=== PATIENT | female | born 1945 | race Caucasian/White ===

== ENCOUNTER → 2019-04-19 20:00 | Outpatient (CLI) | payer MEDICARE, SELFPAY ==
[2019-03-28 10:43] VITALS: BMI 29.0
== END ==
PROVIDERS: Family Provider Family Medicine; PCP Family Medicine; Referring Provider Internal Medicine Critical Care Medicine; Visit Provider Internal Medicine Critical Care Medicine
DX: G47.33 Obstructive sleep apnea (adult) (pediatric) (principal)
CPT/HCPCS: 95811

== ENCOUNTER → 2019-05-19 12:42 | Outpatient (CLI) | payer MEDICARE, SELFPAY ==
[2019-03-28 10:43] VITALS: BMI 29.0
--- NOTE | 2019-05-20 14:04 | PFT ---
INTRODUCTION: The patient is a 73-year-old female that presents for pulmonary function studies secondary to a diagnosis of nicotine dependence. Respiratory therapy reports good patient effort. Bronchodilators were used during testing. INTERPRETATION: Forced expiration spirometry demonstrates no evidence of a large airways obstructive ventilatory defect. There was no significant response to aerosolized bronchodilators, based upon strict ATS criteria. Spirograms are of fair quality and plateau gradually. Body plethysmography was performed and reveals an elevated TLC and RV. Diffusing capacity by single breath CO was within normal limits. IMPRESSION: Subtle findings of potential small airways disease. Otherwise, normal pulmonary function studies.
== END ==
PROVIDERS: Family Provider Family Medicine; PCP Family Medicine; Referring Provider Internal Medicine Critical Care Medicine; Visit Provider Internal Medicine Critical Care Medicine
DX: F17.210 Nicotine dependence, cigarettes, uncomplicated (principal)
CPT/HCPCS: 94060; 94726; 94729